=== PATIENT | male | born 1970 | race Caucasian/White ===

== ENCOUNTER 2018-03-17 13:13 | Emergency (ER) | payer SELFPAY ==
[2018-03-17] MEDS: IPRATROPIUM (NEB) 0.5 MG/2.5 ML AMP NEB (14:14)
[2018-03-17] MEDS: ALBUTEROL 0.083% (NEB) 2.5 MG/3 ML AMP NEB (14:15)
[2018-03-17] MEDS: CEFTRIAXONE 1 GM/50 ML (PMX) 50 ML IVPB (16:27)
[2018-03-17] MEDS: PANTOPRAZOLE 40 MG INJ IV (16:27)
[2018-03-17] MEDS: SODIUM CHLORIDE 0.9% 1L BAG IV* (16:27)
[2018-03-17 16:48] LABS: WHITE BLOOD COUNT 20.8 10^3/ul (4.8-10.8)
[2018-03-17 16:48] LABS: ABNORMAL IP MESSAGE 1; HEMATOCRIT 39.8 % (42.0-52.0); MEAN CORPUSCULAR HEMOGLOBIN 28.4 pg (29.0-33.0); MEAN CORPUSCULAR HGB CONC 32.7 g/dl (32.0-37.0); MEAN CORPUSCULAR VOLUME 86.9 fl (82.0-101.0); MEAN PLATELET VOLUME 9.9 fl (7.4-10.4); PLATELET COUNT 692 10^3/UL (140-415); POSITIVE DIFF @See below; RED BLOOD COUNT 4.58 10^6/ul (4.70-6.10); RED CELL DISTRIBUTION WIDTH 12.4 % (11.5-14.5)
[2018-03-17 17:00] LABS: ADD MAN DIFF? YES
[2018-03-17 17:08] LABS: INR 1.06; PROTIME 13.9 Sec (11.9-14.9); PT RATIO 1.1
[2018-03-17 17:09] LABS: ADD UMIC NO; PARTIAL THROMBOPLASTIN TIME 43.8 Sec (23.0-35.0); UR ASCORBIC ACID NEGATIVE (NEGATIVE); UR BILIRUBIN (Dip) NEGATIVE (NEGATIVE); UR BLOOD (Dip) NEGATIVE (NEGATIVE); UR CLARITY SLIGHTLY CLOUDY (CLEAR); UR COLOR YELLOW (YELLOW); UR GLUCOSE (Dip) NEGATIVE (NEGATIVE); UR KETONES (Dip) NEGATIVE (NEGATIVE); UR LEUKOCYTE ESTERASE (Dip) NEGATIVE Leu/ul (NEGATIVE); UR MUCUS MODERATE /HPF (NONE SEEN); UR NITRITE (Dip) NEGATIVE (NEGATIVE); UR RBC 0 /HPF (0-5); UR SPECIFIC GRAVITY (Dip) 1.027 (1.003-1.030); UR TOTAL PROTEIN (Dip) NEGATIVE (NEGATIVE); UR UROBILINOGEN (Dip) 2+ mg/dL (NEGATIVE); UR WBC 1 /HPF (0-5)
[2018-03-17 17:11] LABS: ALANINE AMINOTRANSFERASE 74 IU/L (13-69); ALBUMIN 3.7 g/dl (3.3-4.9); ALBUMIN/GLOBULIN RATIO 0.84; ALKALINE PHOSPHATASE 92 IU/L (42-121); ANION GAP 12 (5-13); ASPARTATE AMINO TRANSFERASE 46 IU/L (15-46); BILIRUBIN,INDIRECT 0.3 mg/dl (0-1.1); BILIRUBIN,TOTAL 0.3 mg/dl (0.2-1.3); BLOOD UREA NITROGEN 14 mg/dl (7-20); CALCIUM 9.4 mg/dl (8.4-10.2); CARBON DIOXIDE 26 mmol/L (21-31); CHLORIDE 100 mmol/L (97-110); CREATININE 0.93 mg/dl (0.61-1.24); GLUCOSE 148 mg/dl (70-220); POTASSIUM 3.9 mmol/L (3.5-5.1); SODIUM 138 mmol/L (135-144); TOTAL PROTEIN 8.1 g/dl (6.1-8.1)
[2018-03-17 17:20] LABS: BAND NEUTROPHILS % (M) 5 % (0-4); EOSINOPHILS % (M) 13 % (0-7); LYMPHOCYTES #M 3.5 10^3/ul (0.8-2.9); LYMPHOCYTES % (M) 17 % (15-51); MONOCYTE #M 0.4 10^3/ul (0.3-0.9); MONOCYTES % (M) 2 % (0-11); PLATELET ESTIMATE INCREASED; SEG NEUT #M 13.3 10^3/ul (1.6-7.5); SEGMENTED NEUTROPHILS (M) % 63 % (39-77); SMUDGE%M 4 % (0-0)
[2018-03-17 17:22] LABS: TROPONIN-I < 0.012 ng/ml (0.000-0.120)
[2018-03-17] MEDS: AZITHROMYCIN 500MG/NS (PMX) 250 ML IV (17:24)
[2018-03-17] MEDS: IPRATROPIUM (NEB) 0.5 MG/2.5 ML AMP HHN (18:06)
[2018-03-17] MEDS: ALBUTEROL 0.083% (NEB) 2.5 MG/3 ML AMP HHN (18:06)
== END 2018-03-17 19:37 | disposition home or self-care (01) ==
LOC: FTE 13:13
DX: J18.9 Pneumonia, unspecified organism (principal); E11.9 Type 2 diabetes mellitus without complications; J90 Pleural effusion, not elsewhere classified
CPT/HCPCS: 36415; 71046; 71250; 80053; 81001; 81003; 83605; 84484; 85025; 85610; 85730; 87040; 94640; 94664; 96374; 96375; 99285-25

== ENCOUNTER 2018-03-27 11:27 | Inpatient (IN) | payer MEDICAID ==
[2018-03-27] MEDS ORDERED: SOD CHLORIDE 0.9% 1,000 ML IV (14:14)
[2018-03-27 14:36] LABS: ADD MAN DIFF? NO
[2018-03-27 14:43] LABS: WHITE BLOOD COUNT 11.2 10^3/ul (4.8-10.8)
[2018-03-27 14:43] LABS: AADO2 Arterial 46.2 mmHg (7.0-24.0); Allen Test ACCEPTAB; Arterial Blood Gas Oxygen Sat 92.4 mmHG (95.0-98.0); Arterial COHb 0.6 % (0.0-3.0); Arterial Fraction of Oxyhgb 91.7 % (93.0-99.0); Arterial HCO3 24.4 mmol/L (22.0-26.0); Arterial MetHb 0.2 % (0.0-1.5); Arterial Total Hemglobin 13.6 g/dl (12.0-18.0); Arterial pCO2 34.8 mmhg (35-45); BASOPHIL # 0.1 10^3/ul (0.0-0.1); BASOPHILS % 0.6 % (0.0-2.0); EOSINOPHILS # 1.6 10^3/ul (0.0-0.5); EOSINOPHILS % 13.9 % (0.0-7.0); HEMATOCRIT 40.5 % (42.0-52.0); HEMOGLOBIN 13.1 g/dl (14.0-18.0); LYMPHOCYTES # 1.7 10^3/ul (0.8-2.9); LYMPHOCYTES % 15.6 % (15.0-51.0); MEAN CORPUSCULAR HEMOGLOBIN 27.7 pg (29.0-33.0); MEAN CORPUSCULAR HGB CONC 32.3 g/dl (32.0-37.0); MEAN CORPUSCULAR VOLUME 85.6 fl (82.0-101.0); MEAN PLATELET VOLUME 9.7 fl (7.4-10.4); MODE ROOM AIR; MONOCYTE # 0.9 10^3/ul (0.3-0.9); MONOCYTES % 8.3 % (0.0-11.0); NEUTROPHIL # 6.8 10^3/ul (1.6-7.5); NEUTROPHILS % 61.1 % (39.0-77.0); PLATELET COUNT 502 10^3/UL (140-415); RED BLOOD COUNT 4.73 10^6/ul (4.70-6.10); RED CELL DISTRIBUTION WIDTH 12.2 % (11.5-14.5); Site Right Radial
[2018-03-27] MEDS: ALBUTEROL 0.5% (NEB) 2.5 MG/0.5 ML AMP INH (14:54)
[2018-03-27 15:01] LABS: LACTIC ACID 1.5 mmol/L (0.5-2.0)
[2018-03-27 15:02] LABS: ALANINE AMINOTRANSFERASE 44 IU/L (13-69); ALBUMIN 3.8 g/dl (3.3-4.9); ALBUMIN/GLOBULIN RATIO 0.82; ALKALINE PHOSPHATASE 73 IU/L (42-121); ANION GAP 12 (5-13); ASPARTATE AMINO TRANSFERASE 26 IU/L (15-46); BILIRUBIN,INDIRECT 0.4 mg/dl (0-1.1); BILIRUBIN,TOTAL 0.4 mg/dl (0.2-1.3); BLOOD UREA NITROGEN 12 mg/dl (7-20); CALCIUM 9.7 mg/dl (8.4-10.2); CARBON DIOXIDE 27 mmol/L (21-31); CHLORIDE 99 mmol/L (97-110); CREATININE 0.99 mg/dl (0.61-1.24); Estimated GFR > 60 mL/min (>60); GLUCOSE 126 mg/dl (70-220); LIPASE 26 U/L (23-300); POTASSIUM 4.4 mmol/L (3.5-5.1); PROTIME 14.4 Sec (11.9-14.9); PT RATIO 1.1; SODIUM 138 mmol/L (135-144); TOTAL PROTEIN 8.4 g/dl (6.1-8.1)
[2018-03-27 15:03] LABS: PARTIAL THROMBOPLASTIN TIME 41.4 Sec (23.0-35.0)
[2018-03-27] MEDS: IBUPROFEN 600 MG TAB PO (15:10)
[2018-03-27 15:13] LABS: TROPONIN-I < 0.012 ng/ml (0.000-0.120)
[2018-03-27] MEDS: SODIUM CHLORIDE 0.9% 1L BAG IV* (15:17)
[2018-03-27] MEDS: LEVOFLOXACIN 750MG/D5W (PMX) 150 ML IVPB (15:17)
[2018-03-27] MEDS ORDERED: VANCOMYCIN IV PER PHARMACY XX (17:00)
[2018-03-27] MEDS ORDERED: AZITHROMYCIN 250 MG TAB PO (17:00)
[2018-03-27] MEDS ORDERED: OXYCODONE/ACETAMINOPHEN (5/325) TAB PO (17:00)
[2018-03-27] MEDS ORDERED: NACL 0.9% 3 ML SYG IV (17:00)
[2018-03-27] MEDS: VANCOMYCIN 1 GM (PMX) 250 ML IVPB (17:47)
[2018-03-27 17:51] LABS: B-TYPE NATRIURETIC PEPTIDE 91 PG/ML (0-125)
[2018-03-27 18:23] LABS: HIV 1&2 ANTIBODY NEGATIVE (NEGATIVE)
[2018-03-27] MEDS ORDERED: HEPARIN 5,000 UNIT/0.5 ML VIAL (20:40)
[2018-03-27] MEDS: VANCOMYCIN 1 GM 250 ML IVPB (20:46)
[2018-03-27] MEDS: PIPER-TAZO 3.375 GM IV (PMX) 100 ML IVPB (20:46)
[2018-03-27] MEDS: HEPARIN SODIUM 5,000 UNIT/ML VIAL SC (20:52)
[2018-03-27 22:42] LABS: MAGNESIUM 2.1 mg/dl (1.7-2.5)
[2018-03-27] MEDS: AZITHROMYCIN 250 MG TAB PO (23:15)
[2018-03-28] MEDS: PIPER-TAZO 3.375 GM IV (PMX) 100 ML IVPB ×3 (06:51→17:20)
[2018-03-28 07:06] LABS: ADD MAN DIFF? NO
[2018-03-28 07:08] LABS: BASOPHIL # 0.1 10^3/ul (0.0-0.1); BASOPHILS % 0.6 % (0.0-2.0); EOSINOPHILS # 1.5 10^3/ul (0.0-0.5); EOSINOPHILS % 15.1 % (0.0-7.0); HEMATOCRIT 35.4 % (42.0-52.0); HEMOGLOBIN 11.7 g/dl (14.0-18.0); LYMPHOCYTES # 1.4 10^3/ul (0.8-2.9); LYMPHOCYTES % 14.4 % (15.0-51.0); MEAN CORPUSCULAR HEMOGLOBIN 28.2 pg (29.0-33.0); MEAN CORPUSCULAR HGB CONC 33.1 g/dl (32.0-37.0); MEAN CORPUSCULAR VOLUME 85.3 fl (82.0-101.0); MONOCYTE # 0.9 10^3/ul (0.3-0.9); MONOCYTES % 9.2 % (0.0-11.0); NEUTROPHIL # 5.8 10^3/ul (1.6-7.5); PLATELET COUNT 411 10^3/UL (140-415); RED BLOOD COUNT 4.15 10^6/ul (4.70-6.10); RED CELL DISTRIBUTION WIDTH 12.3 % (11.5-14.5)
[2018-03-28 07:08] LABS: WHITE BLOOD COUNT 9.7 10^3/ul (4.8-10.8)
[2018-03-28 07:18] LABS: HEMOGLOBIN A1C 7.5 % (0-5.9)
[2018-03-28 07:44] LABS: ALANINE AMINOTRANSFERASE 36 IU/L (13-69); ALBUMIN 3.3 g/dl (3.3-4.9); ALBUMIN/GLOBULIN RATIO 0.78; ALKALINE PHOSPHATASE 59 IU/L (42-121); ANION GAP 8 (5-13); ASPARTATE AMINO TRANSFERASE 19 IU/L (15-46); BILIRUBIN,INDIRECT 0.3 mg/dl (0-1.1); BILIRUBIN,TOTAL 0.3 mg/dl (0.2-1.3); BLOOD UREA NITROGEN 9 mg/dl (7-20); CALCIUM 9.2 mg/dl (8.4-10.2); CARBON DIOXIDE 24 mmol/L (21-31); CHLORIDE 108 mmol/L (97-110); CREATININE 0.95 mg/dl (0.61-1.24); Estimated GFR > 60 mL/min (>60); GLUCOSE 134 mg/dl (70-220); POTASSIUM 4.4 mmol/L (3.5-5.1); SODIUM 140 mmol/L (135-144); TOTAL PROTEIN 7.5 g/dl (6.1-8.1)
[2018-03-28] MEDS ORDERED: VANCOMYCIN 1.5 GM in SOD CHLORIDE 0.9% 250 ML IVPB (08:30)
[2018-03-28] MEDS ORDERED: HEPARIN 5,000 UNIT/0.5 ML VIAL ×2 (08:59→20:56)
[2018-03-28] MEDS: FLUCONAZOLE 200 MG TAB PO (09:05)
[2018-03-28] MEDS: DOXYCYCLINE 100 MG TAB PO ×2 (09:05→21:06)
[2018-03-28] MEDS: HEPARIN SODIUM 5,000 UNIT/ML VIAL SC ×2 (09:26→21:23)
[2018-03-28 10:18] LABS: ERYTHROCYTE SEDIMENTATION RATE 120 mm/Hr (0-15)
[2018-03-29] MEDS: PIPER-TAZO 3.375 GM IV (PMX) 100 ML IVPB ×4 (00:29→17:29)
[2018-03-29] MEDS ORDERED: HEPARIN 5,000 UNIT/0.5 ML VIAL ×3 (09:32→20:44)
[2018-03-29] MEDS: L ACIDOPHIL/B LACTIS/B LONGUM CAPSULE PO ×2 (09:39→20:48)
[2018-03-29] MEDS: DOXYCYCLINE 100 MG TAB PO ×2 (09:39→20:48)
[2018-03-29] MEDS: FLUCONAZOLE 200 MG TAB PO (09:39)
[2018-03-29] MEDS: HEPARIN SODIUM 5,000 UNIT/ML VIAL SC ×2 (10:04→21:20)
[2018-03-29] MEDS: INFLUENZA VIRUS VACCINE 0.5 ML (DISPENSING) IM* (12:02)
[2018-03-29 13:37] LABS: ANA SCREEN NEGATIVE (NEGATIVE)
[2018-03-29 15:11] LABS: NIL 0.16 IU/mL; QUANTIFERON(R)-TB GOLD POSITIVE (NEGATIVE); TB-NIL 0.91 IU/mL
[2018-03-29 16:43] LABS: MYELOPEROXIDASE ANTIBODY <1.0 AI; PROTEINASE-3 ANTIBODY <1.0 AI
[2018-03-29] MEDS: NACL 3% FOR INHALATION 15 ML NEBU NEB (18:30)
[2018-03-30] MEDS: PIPER-TAZO 3.375 GM IV (PMX) 100 ML IVPB ×2 (00:52→05:39)
[2018-03-30 06:58] LABS: ABNORMAL IP MESSAGE 1; HEMATOCRIT 35.1 % (42.0-52.0); HEMOGLOBIN 11.4 g/dl (14.0-18.0); MEAN CORPUSCULAR HEMOGLOBIN 27.7 pg (29.0-33.0); MEAN CORPUSCULAR HGB CONC 32.5 g/dl (32.0-37.0); MEAN CORPUSCULAR VOLUME 85.4 fl (82.0-101.0); MEAN PLATELET VOLUME 10.2 fl (7.4-10.4); PLATELET COUNT 378 10^3/UL (140-415); POSITIVE DIFF @See below; RED BLOOD COUNT 4.11 10^6/ul (4.70-6.10); RED CELL DISTRIBUTION WIDTH 12.8 % (11.5-14.5)
[2018-03-30 06:58] LABS: WHITE BLOOD COUNT 10.4 10^3/ul (4.8-10.8)
[2018-03-30 07:11] LABS: ADD MAN DIFF? YES
[2018-03-30 07:15] LABS: ALANINE AMINOTRANSFERASE 45 IU/L (13-69); ALBUMIN 3.5 g/dl (3.3-4.9); ALBUMIN/GLOBULIN RATIO 0.81; ALKALINE PHOSPHATASE 63 IU/L (42-121); ANION GAP 11 (5-13); ASPARTATE AMINO TRANSFERASE 28 IU/L (15-46); BILIRUBIN,INDIRECT 0.3 mg/dl (0-1.1); BILIRUBIN,TOTAL 0.3 mg/dl (0.2-1.3); BLOOD UREA NITROGEN 8 mg/dl (7-20); CALCIUM 9.3 mg/dl (8.4-10.2); CARBON DIOXIDE 23 mmol/L (21-31); CHLORIDE 109 mmol/L (97-110); CREATININE 1.02 mg/dl (0.61-1.24); Estimated GFR > 60 mL/min (>60); GLUCOSE 118 mg/dl (70-220); POTASSIUM 4.1 mmol/L (3.5-5.1); SODIUM 143 mmol/L (135-144); TOTAL PROTEIN 7.8 g/dl (6.1-8.1)
[2018-03-30 07:46] LABS: ANCA SCREEN NEGATIVE (NEGATIVE)
[2018-03-30] MEDS ORDERED: HEPARIN 5,000 UNIT/0.5 ML VIAL (08:07)
[2018-03-30] MEDS: L ACIDOPHIL/B LACTIS/B LONGUM CAPSULE PO (08:20)
[2018-03-30] MEDS: DOXYCYCLINE 100 MG TAB PO (08:20)
[2018-03-30] MEDS: FLUCONAZOLE 200 MG TAB PO (08:20)
[2018-03-30] MEDS: CEFPODOXIME 200 MG TAB PO (08:25)
[2018-03-30] MEDS: HEPARIN SODIUM 5,000 UNIT/ML VIAL SC (08:42)
[2018-03-30 08:53] LABS: ANISOCYTOSIS 1+ (0-0); BAND NEUTROPHILS #M 1.2 10^3/ul (0.0-0.6); BAND NEUTROPHILS % (M) 12 % (0-4); BASOPHIL #M 0.1 10^3/ul (0.0-0.0); BASOPHILS % (M) 1 % (0-2); BURR CELLS 1+ (0-0); EOSINOPHILS % (M) 18 % (0-7); LYMPHOCYTES #M 0.9 10^3/ul (0.8-2.9); LYMPHOCYTES % (M) 9 % (15-51); MONOCYTE #M 1.2 10^3/ul (0.3-0.9); MONOCYTES % (M) 12 % (0-11); PLATELET ESTIMATE NORMAL; POIKILOCYTOSIS 1+ (0-0); REACTIVE LYMPHOCYTES% (M) 10 % (0-0); SEG NEUT #M 4.1 10^3/ul (1.6-7.5); SEGMENTED NEUTROPHILS (M) % 38 % (39-77); SMUDGE%M 38 % (0-0)
[2018-03-30 13:52] LABS: NIL 0.16 IU/mL; QUANTIFERON(R)-TB GOLD NEGATIVE (NEGATIVE)
[2018-03-31 17:41] LABS: PROCALCITONIN 0.13 ng/mL (<0.10)
== END 2018-03-30 17:10 | disposition home or self-care (01) | DRG 871 ==
LOC: E/R 11:27 → ICU 16:19 → TEL 23:37
DX: A41.9 Sepsis, unspecified organism (principal); J18.9 Pneumonia, unspecified organism; B38.2 Pulmonary coccidioidomycosis, unspecified; E11.9 Type 2 diabetes mellitus without complications; D72.1 Eosinophilia; R09.02 Hypoxemia
CPT/HCPCS: 36600; 71045; 80053; 82803; 83036; 83605; 83690; 83735; 83880; 84145; 84484; 85025; 85610; 85651; 85730; 86021; 86038; 86480; 86635; 86703; 86713; 86738; 87040; 87086; 87116; 87449; 89220; 90686; 93005; 93306; 94640; 94644; 99285-25